=== PATIENT | male | born 1970 | race Caucasian/White ===

== ENCOUNTER 2016-09-22 12:51 | Emergency (ER) | payer OTHER ==
[2016-09-22 13:00] VITALS: BP 122/78
[2016-09-22] MEDS ORDERED: Albuterol HFA INHALER* 8 gm MDI INH ONE (13:38)
--- NOTE | 2016-09-22 13:49 | UC ---
Respiratory Complaint HPI - HPI Summary HPI Summary: 46 yo male with the onset of cough about one week ago his entire family got sick with similar symptoms they are better but he remains ill productive cough chest tightness no f/c - History of Current Complaint Chief Complaint: UCGeneralIllness Stated Complaint: COLD LIKE SYMPTOMS Time Seen by Provider: 09/22/16 13:25 Hx Obtained From: Patient Onset/Duration: Gradual Onset, Lasting Days - about 7 Severity Initially: Mild Severity Currently: Moderate Pain Intensity: 2 Pain Scale Used: 0-10 Numeric Character: Cough: Productive - greenish (in AM) Aggravating Factors: Exertion Alleviating Factors: Nothing Associated Signs And Symptoms: Positive: Wheezing - at night. Negative: Dyspnea , Pleuritic Chest Pain, Hemoptysis, Dizziness, Calf Pain, Calf Swelling, Edema, URI, Nasal Congestion, Hoarseness, Sinus Discomfort - Allergies/Home Medications Allergies/Adverse Reactions: Allergies Allergy/AdvReac Type Severity Reaction Status Date / Time Penicillins Allergy Unknown Unknown Verified 09/22/16 12:54 Reaction Details Home Medications: Home Medications Ibuprofen TAB* [Advil TAB*] 400 mg PO Q6H PRN 09/22/16 [History Confirmed ] Pseudoephedrine TAB* [Sudafed TAB*] 30 mg PO Q6H PRN 09/22/16 [History Confirmed 09/22/16] PMH/Surg Hx/FS Hx/Imm Hx Previously Healthy: Yes - Surgical History Surgical History: None - Family History Known Family History: Negative: Cardiac Disease, Hypertension, Diabetes, Respiratory Disease - Social History Alcohol Use: Weekly Substance Use Type: None Smoking Status (MU): Never Smoked Tobacco Type: Cigars, Smokeless Tobacco Amount Used/How Often: occ. usage, random Have You Smoked in the Last Year: Yes Review of Systems Constitutional: Negative Skin: Negative Eyes: Negative ENT: Negative Respiratory: Cough Cardiovascular: Negative Gastrointestinal: Negative Genitourinary: Negative Motor: Negative Neurovascular: Negative Musculoskeletal: Negative Neurological: Negative Psychological: Negative All Other Systems Reviewed And Are Negative: Yes Physical Exam Triage Information Reviewed: Yes Appearance: Well-Appearing, No Pain Distress, Well-Nourished Vital Signs: Initial Vital Signs Temp 99.3 F 09/22/16 12:55 Pulse 78 09/22/16 12:55 Resp 16 09/22/16 12:55 BP 122/78 09/22/16 12:55 Pulse Ox 100 09/22/16 12:55 Eyes: Positive: Conjunctiva Clear ENT: Positive: TM red - right (landed on that side waterskiing this AM). Negative: Hearing grossly normal - decreased right, Nasal congestion, Nasal drainage, Tonsillar swelling, Tonsillar exudate, Muffled/hoarse voice Neck: Positive: Supple, Nontender Respiratory: Positive: Normal breath sounds, No respiratory distress, No accessory muscle use, Wheezing - with forced expiration Cardiovascular: Positive: RRR, No Murmur. Negative: Tachycardia, Bradycardia Musculoskeletal: Positive: ROM Intact, No Edema Neurological: Positive: Alert Psychological Exam: Normal Skin Exam: Normal UC Diagnostic Evaluation - Laboratory O2 Sat by Pulse Oximetry: 100 Respiratory Course/Dx - Course Course Of Treatment: given option of using prednisone and antibiotics as well. he wishes to give it some more time to see if symptoms resolve. will f/u if not improving or if symptoms worsen - Differential Dx/Diagnosis Provider Diagnoses: viral URI. mild bronchospasm. barotrauma right ear Discharge - Discharge Plan Condition: Stable Disposition: HOME Patient Education Materials: Bronchospasm (ED) Referrals: Dionisio Bautista MD [Primary Care Provider] - 4 Days (if not better) Additional Instructions: use inhaler as directed if not improving yo may need antibiotics and or steroids
== END 2016-09-22 13:58 | disposition home or self-care (01) ==
LOC: UCCORT 12:51
DX: J06.9 Acute upper respiratory infection, unspecified (principal); J98.01 Acute bronchospasm; T70.0XXA Otitic barotrauma, initial encounter; X58.XXXA Exposure to other specified factors, initial encounter; Z88.0 Allergy status to penicillin; Z72.0 Tobacco use
CPT/HCPCS: 99211; A9270-GY; G0463